=== PATIENT | female | born 1950 | race Caucasian/White ===

== ENCOUNTER 2017-05-07 12:36 | Outpatient (CLI) | payer MEDICARE, BC | END 2017-05-07 12:37 | disposition home or self-care (01) | LOC: BICMAMMO 12:36 | PROVIDERS: ATTEND Obstetrics & Gynecology | DX: Z12.31 Encounter for screening mammogram for malignant neoplasm of breast (principal) | CPT/HCPCS: 77063 ==

== ENCOUNTER 2018-09-01 12:08 | Outpatient (CLI) | payer MEDICARE, BC ==
--- NOTE | 2018-09-01 12:52 | MMO ---
Bilateral MAMMO Bilat Screen [facility]. CLINICAL HISTORY: Patient is 68 years old and is seen for screening. The patient has no family history of breast cancer. The patient has no personal history of cancer. The patient has a history of right Excisional Biopsy in November, - benign and left Excisional Biopsy - years jacques. VIEWS: The views performed were: bilateral craniocaudal with tomosynthesis; bilateral mediolateral oblique with tomosynthesis; and right exaggerated craniocaudal. FILMS COMPARED: The present examination has been compared to prior imaging studies performed at [facility] on 04/19/2015, 05/02/2016 and 05/07/2017, and at [facility] on 01/25/2013. MAMMOGRAM FINDINGS: There are scattered fibroglandular densities. There is a single benign appearing calcification seen in the left breast. There are no suspicious masses, suspicious calcifications, or new areas of architectural distortion. IMPRESSION: THERE IS NO MAMMOGRAPHIC EVIDENCE OF MALIGNANCY. A ROUTINE FOLLOW-UP MAMMOGRAM IN 1 YEAR IS RECOMMENDED. THE RESULTS OF THIS EXAM WERE SENT TO THE PATIENT. ACR BI-RADS Category 2 - Benign finding MAMMOGRAPHY NOTE: 1. A negative mammogram report should not delay a biopsy if a dominant of clinically suspicious mass is present. 2. Approximately 10% to 15% of breast cancers are not detected by mammography. 3. Adenosis and dense breasts may obscure an underlying neoplasm.
== END 2018-09-01 12:09 | disposition home or self-care (01) ==
LOC: BICMAMMO 12:08
DX: Z12.31 Encounter for screening mammogram for malignant neoplasm of breast (principal)
CPT/HCPCS: 77063; 77067

== ENCOUNTER 2019-11-07 11:31 | Outpatient (CLI) | payer MEDICARE, BC ==
--- NOTE | 2019-11-07 12:57 | MMO ---
Bilateral MAMMO Bilat Screen [facility]+NANI. CLINICAL HISTORY: Patient is 69 years old and is seen for screening. The patient has no family history of breast cancer. The patient has no personal history of cancer. The patient has a history of right Excisional Biopsy in November, - benign and left Excisional Biopsy - years jacques. VIEWS: The views performed were: bilateral craniocaudal with tomosynthesis and bilateral mediolateral oblique with tomosynthesis. FILMS COMPARED: The present examination has been compared to prior imaging studies performed at [facility] on 04/19/2015, 05/02/2016, 05/07/2017 and 09/01/2018. This study has been interpreted with the assistance of computer-aided detection. MAMMOGRAM FINDINGS: There are scattered fibroglandular densities. There is an asymmetry seen in the outer region of the left breast. In the right breast, there are no suspicious masses, calcifications or areas of architectural distortion. IMPRESSION: ASYMMETRY IN THE LEFT BREAST REQUIRES ADDITIONAL EVALUATION. AN ULTRASOUND EXAM IS RECOMMENDED IF NEEDED. RECOMMEND DIAGNOSTIC MAMMOGRAM. THE RESULTS OF THIS EXAM WERE SENT TO THE PATIENT. ACR BI-RADS Category 0 - Incomplete: Need additional imaging evaluation. [facility] will notify the patient of the need for additional imaging services. MAMMOGRAPHY NOTE: 1. A negative mammogram report should not delay a biopsy if a dominant of clinically suspicious mass is present. 2. Approximately 10% to 15% of breast cancers are not detected by mammography. 3. Adenosis and dense breasts may obscure an underlying neoplasm. Reported by: ALIZA FULLER MD Electonically Signed: [id number]
== END 2019-11-07 11:32 | disposition home or self-care (01) ==
LOC: BICMAMMO 11:31
DX: Z12.31 Encounter for screening mammogram for malignant neoplasm of breast (principal); N64.89 Other specified disorders of breast; Z91.89 Other specified personal risk factors, not elsewhere classified
CPT/HCPCS: 77063; 77067

== ENCOUNTER 2019-11-11 12:53 | Outpatient (CLI) | payer MEDICARE, BC ==
--- NOTE | 2019-11-11 15:43 | MMO ---
Left Breast MAMMO Unilat Diag [facility]DI LT+NANI. CLINICAL HISTORY: Patient is 69 years old and is seen for additional evaluation requested at current screening. The patient has no family history of breast cancer. The patient has no personal history of cancer. The patient has a history of right Excisional Biopsy in November, - benign and left Excisional Biopsy - years jacques. VIEWS: The views performed were: left craniocaudal spot compression with tomosynthesis; left mediolateral oblique spot compression with tomosynthesis; and left mediolateral with tomosynthesis. FILMS COMPARED: The present examination has been compared to prior imaging studies performed at [facility] on 05/07/2017, 09/01/2018, 11/07/2019 and 11/11/2019. This study has been interpreted with the assistance of computer-aided detection. MAMMOGRAM FINDINGS: There are scattered fibroglandular densities. There is a focal asymmetry seen in the left breast at 4 o'clock. IMPRESSION: FOCAL ASYMMETRY IN THE LEFT BREAST IS PROBABLY BENIGN. FOLLOW-UP IN 6 MONTHS IS RECOMMENDED. THE RESULTS OF THIS EXAM WERE SENT TO THE PATIENT. ACR BI-RADS Category 3 - Probably benign finding - short interval follow-up suggested. [facility] will notify the patient of the need for additional imaging services. MAMMOGRAPHY NOTE: 1. A negative mammogram report should not delay a biopsy if a dominant of clinically suspicious mass is present. 2. Approximately 10% to 15% of breast cancers are not detected by mammography. 3. Adenosis and dense breasts may obscure an underlying neoplasm. Reported by: ALIZA FULLER MD Electonically Signed: [id number]
--- NOTE | 2019-11-11 19:21 | ULT ---
LEFT BREAST ULTRASOUND: 11/11/19 HISTORY: Asymmetry seen in the left breast 4 o'clock position. On mammogram. Real time imaging of the area of concern shows a cluster of cystic appearing densities in maximum mendez gth they measure 7 x 18 mm in size. Given the small size of the individual cysts, a six month mammogr am is recommended for follow-up for assessment of stability. Findings were discussed with the patient . IMPRESSION: BIRADS 3: Probably Benign Finding Initial Short-Interval Follow-Up Suggested Initial short-term follow up (usually 6-month) examination Six month follow-up mammogram of the left breast is recommended. Ultrasound may also be performed a t that time.
== END 2019-11-11 12:54 | disposition home or self-care (01) ==
LOC: BICMAMMO 12:53
DX: R92.2 Inconclusive mammogram (principal); N64.89 Other specified disorders of breast
CPT/HCPCS: 76642; 77065; G0279

== ENCOUNTER 2020-05-07 09:29 | Outpatient (CLI) | payer MEDICARE, BC ==
--- NOTE | 2020-05-07 11:09 | MMO ---
Left Breast MAMMO Unilat Diag [facility] LT+NANI. CLINICAL HISTORY: Patient is 70 years old and is seen for follow-up at short-interval from prior study. The patient has no family history of breast cancer. The patient has no personal history of cancer. The patient has a history of right Excisional Biopsy in November, - benign and left Excisional Biopsy - years jacques. VIEWS: The views performed were: left craniocaudal with tomosynthesis; left mediolateral oblique with tomosynthesis; and left mediolateral with tomosynthesis. FILMS COMPARED: The present examination has been compared to prior imaging studies performed at [facility] on 11/07/2019, 11/11/2019 and 05/07/2020. This study has been interpreted with the assistance of computer-aided detection. MAMMOGRAM FINDINGS: There are scattered fibroglandular densities. Focal asymmetry is less prominent at 4:00 but cluster of cysts on US are stable IMPRESSION: FINDING IN THE LEFT BREAST IS PROBABLY BENIGN. FOLLOW-UP IN 6 MONTHS IS RECOMMENDED. THE RESULTS OF THIS EXAM WERE SENT TO THE PATIENT. ACR BI-RADS Category 3 - Probably benign finding - short interval follow-up suggested. [facility] will notify the patient of the need for additional imaging services. MAMMOGRAPHY NOTE: 1. A negative mammogram report should not delay a biopsy if a dominant of clinically suspicious mass is present. 2. Approximately 10% to 15% of breast cancers are not detected by mammography. 3. Adenosis and dense breasts may obscure an underlying neoplasm. Reported by: DAINA DAVIS MD Electonically Signed: [id number]
--- NOTE | 2020-05-07 11:31 | ULT ---
LIMITED LEFT BREAST ULTRASOUND: HISTORY: Abnormal mammogram. Followup. COMPARISON: Comparison is made with the ultrasound of 10/11/2019 and correlation is made today's mammogram. FINDINGS: Sonogrpahic evaluation at the 4 o'clock position of the left breast redemonstrates a cluster of cysti c-appearing masses measuring 1.9 x 1 cm, essentially stable since the last study. The asymmetry in the left breast on the mammogram at the 4 o'clock position is less prominent on the current exam. IMPRESSION: BIRADS category 3 - probably benign findings. Six-month followup left diagnostic mammogram and left breast ultrasound are recommended. POS: OFF
== END 2020-05-07 09:30 | disposition home or self-care (01) ==
LOC: BICMAMMO 09:29
DX: R92.8 Other abnormal and inconclusive findings on diagnostic imaging of breast (principal)
CPT/HCPCS: 76642; 77065; G0279

== ENCOUNTER 2020-11-07 09:21 | Outpatient (CLI) | payer MEDICARE, BC | END 2020-11-07 09:22 | disposition home or self-care (01) | LOC: BICMAMMO 09:21 | PROVIDERS: ATTEND Family Medicine | DX: R92.8 Other abnormal and inconclusive findings on diagnostic imaging of breast (principal); N64.89 Other specified disorders of breast | CPT/HCPCS: 77066; G0279 ==

== ENCOUNTER 2021-05-10 10:40 | Outpatient (CLI) | payer MEDICARE, BC | END 2021-05-10 10:41 | disposition home or self-care (01) | LOC: BICMAMMO 10:40 | PROVIDERS: ATTEND Family Medicine | DX: R92.8 Other abnormal and inconclusive findings on diagnostic imaging of breast (principal); N64.89 Other specified disorders of breast | CPT/HCPCS: 76642; 77065; G0279 ==